=== PATIENT | male | born 1980 | race Caucasian/White ===

== ENCOUNTER 2023-04-26 16:35 | Emergency (ER) | payer OTHER | END 2023-04-26 17:52 | disposition home or self-care (01) | LOC: DL.ED 16:35 | DX: S62.112A Displaced fracture of triquetrum [cuneiform] bone, left wrist, initial encounter for closed fracture (principal); W20.8XXA Other cause of strike by thrown, projected or falling object, initial encounter | CPT/HCPCS: 73100-LT; 73100-RT; 99282; 99283 ==